=== PATIENT | female | born 1990 | race Caucasian/White ===

== ENCOUNTER 2017-06-29 11:20 | Emergency (ER) | payer MEDICAID ==
[~2017-06-29] VITALS: Ht 157.5 cm; Wt 54.5 kg
[2017-06-29] MEDS ORDERED: IBUPROFEN 800 MG TABLET PO ONE (12:15)
[2017-06-29 12:58] VITALS: BP 125/88
== END 2017-06-29 13:06 | disposition home or self-care (01) ==
LOC: EMS 11:23
DX: S42.002A Fracture of unspecified part of left clavicle, initial encounter for closed fracture (principal); Y35.91XA Legal intervention, means unspecified, law enforcement official injured, initial encounter; Y93.89 Activity, other specified; Y92.89 Other specified places as the place of occurrence of the external cause; Y99.8 Other external cause status
CPT/HCPCS: 99284